=== PATIENT | male | born 1995 | race Caucasian/White ===

== ENCOUNTER 2016-12-15 20:05 | Emergency (ER) | payer BC ==
[~2016-12-15] VITALS: Ht 195.6 cm; Wt 166.2 kg
[~2016-12-15 20:05] MED LIST: TYLENOL WITH C1 EACH PO
[2016-12-15 21:47] LABS: HEMATOCRIT 43.7 % (38.0-50.0); MCH 31.6 PG (29.0-34.0); MCHC 35.7 G/DL (30.0-36.0); MCV 88.5 FL (86-99); MEAN PLAT.VOLUME 9.6 uM^3 (9.0-12.4); PLATELET COUNT 218 K/uL (156-360); RBC DIS.WIDTH-CV 12.3 % (11.8-14.6); RBC DIS.WIDTH-SD 39.7 % (39-53); RED BLOOD COUNT 4.94 M/uL (4.00-5.50); WHITE BLOOD COUNT 8.7 K/uL (4.1-10.2)
[2016-12-15 21:55] LABS: CHLORIDE 106 mEq/L (99-109); POTASSIUM 3.9 mEq/L (3.7-5.4); SODIUM 142 mEq/L (136-147)
[2016-12-15 21:58] LABS: GLUCOSE 110 mg/dL (70-99)
[2016-12-15 21:59] LABS: ANION GAP 11 MEQ/L (2-14); D-DIMER ELISA < 0.15 mg/L FEU (< 0.57)
[2016-12-15 22:00] LABS: TOTAL BILIRUBIN 0.4 mg/dL (0.0-1.0)
[2016-12-15 22:01] LABS: ALKALINE PHOSPHATASE 42 IU/L (3-129); GFR ESTIMATE (CALCULATED) > 59 mL/min/
[2016-12-15 22:02] LABS: UREA NITROGEN (BUN) 14 mg/dL (9-23)
[2016-12-15 22:07] LABS: TROP-I INTERPRETATION NEGATIVE; TROPONIN-I < 0.01 ng/mL (0.0-0.30)
[2016-12-15 23:04] VITALS: BP 135/93
== END 2016-12-15 23:06 | disposition home or self-care (01) ==
LOC: EME 20:05 → EXP 20:05
PROVIDERS: Physician Assistant
DX: R07.9 Chest pain, unspecified (principal); F41.1 Generalized anxiety disorder; F43.9 Reaction to severe stress, unspecified
CPT/HCPCS: 80053; 84484; 85027; 85379; 93005; 99281; 99284